=== PATIENT | female | born 1985 | race Caucasian/White ===

== ENCOUNTER 2022-05-18 21:41 | Inpatient (IN) | payer BC ==
[~2022-05-18] VITALS: Ht 165.1 cm; Wt 78.2 kg
--- NOTE | 2022-05-18 22:00 | NUR ---
2200 G2L1 39.2 WEEK GEST TO LR3 WITH C/O CONTRACTIONS STARTING AT 2000 TONIGHT. UNCOMFORTABLE WITH CONTRACTIONS. EFM ON. SVE /-1 WITH INTACT BOW. ROLES ON UNIT AND NOTIFIED OF PT AND REQUEST FOR EPIDURAL. ADM ORDERS RECEIVED. 2219 IV STARTED. PERMITS SIGNED. 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
[2022-05-18] MEDS ORDERED: PRENATAL TABLET PO (22:05)
[2022-05-18 22:10] VITALS: BP 138/87; PULSE 99; TEMP 98.1
[2022-05-18 22:25] VITALS: BP 143/84; PULSE 112
--- NOTE | 2022-05-18 22:25 | NUR ---
2225 SITTING ON SIDE OF BED FOR EPIDURAL. UNABLE TO TRACE FHTS WHILE SITTING UP. EPIDURAL DOSED AT 2328. SEE ANESTHSIA RECORDS FOR MORE INFORMATION.
[2022-05-18 22:29] LABS: BASO % 0.2 % (0.0-2.0); EOS # 0.1 K/mm3 (0.0-0.7); EOS % 0.4 % (0.0-4.0); GRAN # 12.4 K/mm3 (1.4-6.5); GRAN % 71.6 % (42.2-75.2); HEMOGLOBIN 11.4 g/dl (12.5-16.0); LYMPH % 22.9 % (20.0-51.0); MEAN CELL VOLUME 87 fl (80.0-100.0); MEAN CORPUSCULAR HEMOGLOBIN 28 pg (27-31); MEAN CORPUSCULAR HGB CONC 33 g/dl (33.0-37.0); MONO # 0.8 K/mm3 (0.1-0.6); MONO % 4.4 % (1.7-9.3); PLATELET COUNT 210 K/mm3 (130-400); RED BLOOD COUNT 4.01 M/mm3 (4.10-5.30); REDCELL DISTRIBUTION WIDTH-CV 12.9 % (11.5-14.5)
[2022-05-18 22:45] VITALS: BP 118/78; PULSE 110
[2022-05-18 23:00] VITALS: BP 119/70; PULSE 93
[2022-05-18 23:15] VITALS: BP 119/66; PULSE 96
--- NOTE | 2022-05-18 23:27 | NUR ---
2327 COMPLETE. LABORS DOWN WHILE WAITING FOR DR ROLES.
[2022-05-18 23:30] VITALS: BP 140/62; PULSE 106
--- NOTE | 2022-05-18 23:40 | NUR ---
2340 ROLES AT BEDSIDE AND READIED FOR DELIVERY. BEGINS TO PUSH WITH CONTRACTIONS. FHT DECREASE TO 60-70 AFTER CONTRACTIONS WITH RETURN TO 120'S AFTER PUSHING. 2347 DELIVERY VIABLE MALE OVER 1ST DEGREE LACERATION WITH 9/9/9 APGARS. IV CONTS TO INFUSE.
[2022-05-19] VITALS (12 sets, daily range): BP systolic 114–134; BP diastolic 55–85; PULSE 73–114; TEMP 97.4–98.1
--- NOTE | 2022-05-19 02:00 | NUR ---
0200 IV TO INT. EPID CATH REMOVED. UP TO BR WITH ASSIST AND VOIDED 100CC. PERICARE DONE. AMB TO 216 AND JULIUS WELL.
[2022-05-19] MEDS ORDERED: MOTRIN 800800 MG/TAB PO (06:31)
--- NOTE | 2022-05-19 09:11 | NUR ---
Initial visit; Parents thanked Flow Coordinator for offering congratulations and God's blessings for the of their son. Flow Coordinator thanked family for choosing [facility].
[2022-05-20 08:55] VITALS: BP 124/82; PULSE 85; TEMP 97.6
== END 2022-05-20 16:55 | disposition home or self-care (01) | DRG 807 ==
LOC: LDRO 21:41 → LDR 22:12 → OB 22:12
PROVIDERS: ADMIT Obstetrics & Gynecology
PROC: 10E0XZZ Delivery of Products of Conception, External Approach (ICD-10-PCS; principal; 2022-05-19)
PROC: 0KQM0ZZ Repair Perineum Muscle, Open Approach (ICD-10-PCS; 2022-05-19)
DX: O70.1 Second degree perineal laceration during delivery (principal); Z37.0 Single live birth; Z3A.39 39 weeks gestation of pregnancy
CPT/HCPCS: J2590; J2795; J7120